=== PATIENT | female | born 1980 | race Two or more races ===

== ENCOUNTER → 2021-12-04 | Emergency (ER) | payer SELFPAY ==
[~2021-12-04] VITALS: Ht 170.2 cm; Wt 52.1 kg
[2021-12-04 18:50] VITALS: BP 137/86
== END | disposition left against medical advice (07) ==
LOC: ER 18:19
DX: M54.9 Dorsalgia, unspecified (principal); Z53.21 Procedure and treatment not carried out due to patient leaving prior to being seen by health care provider; V43.62XA Car passenger injured in collision with other type car in traffic accident, initial encounter; Y93.89 Activity, other specified; Y92.410 Unspecified street and highway as the place of occurrence of the external cause; Y99.8 Other external cause status